=== PATIENT | female | born 1980 | race Caucasian/White ===

== ENCOUNTER 2017-07-14 16:45 | Observation (INO) | payer OTHER ==
[2017-07-14 18:11] LABS: BASO % 0.3 % (0.0-1.0); EOS # 0.1 10^3/uL (0.0-0.50); EOS % 0.9 % (0.0-3.0); HEMOGLOBIN 14.3 g/dl (12.0-16.0); IMMATURE GRANULOCYTE % 0.2 % (0-0); LYMPH # 1.5 10^3/uL (1.5-4.5); LYMPH % 23.5 % (24.0-44.0); MEAN CORPUSCULAR HEMOGLOBIN 27.6 pg (27.0-33.0); MEAN CORPUSCULAR HGB CONC 33.3 g/dl (32.0-36.5); MONO # 0.7 10^3/uL (0.0-0.8); MONO % 10.3 % (0.0-5.0); NEUTROPHILS # 4.2 10^3/uL (1.8-7.7); NEUTROPHILS % 64.8 % (36.0-66.0); PLATELET COUNT, AUTOMATED 273 10^3/uL (150-450); RED BLOOD COUNT 5.18 10^6/uL (4.00-5.40); RED CELL DISTRIBUTION WIDTH 13.1 % (11.5-14.5); WHITE BLOOD COUNT 6.4 10^3/uL (4.0-10.0)
[2017-07-14 18:14] LABS: KETONE, URINE AUTO RFX NEGATIVE (NEGATIVE); LEUKOCYTE ESTERASE UR AUTO RFX NEGATIVE (NEGATIVE); MUCUS, URINE RFX SMALL (NEGATIVE); NITRITE, URINE AUTO RFX NEGATIVE (NEGATIVE); RBC, URINE AUTO RFX 5 /HPF (0-3); SPECIFIC GRAVITY UR AUTO RFX 1.012 (1.002-1.035); SQUAM EPITHELIAL CELL UR AURFX 0 /HPF (0-6); WBC, URINE AUTO RFX 1 /HPF (0-3)
[2017-07-14] MEDS: MORPHINE 4 MG/ML 1ML VIAL (J2270) IV (20:18)
[2017-07-14] MEDS: ONDANSETRON 4MG/2ML VIAL (J2405) IV ×2 (20:18)
[2017-07-14] MEDS: MORPHINE 4 MG/ML 1ML SYRINGE IV (20:18)
[2017-07-14 20:20] LABS: CONTROL LINE HCG INT CTR LINE PRESENT; HCG, SERUM QUALITATIVE NEGATIVE (NEGATIVE)
[2017-07-14 20:28] LABS: ALBUMIN 3.7 GM/DL (3.2-5.2); ALBUMIN/GLOBULIN RATIO 1.32 (1.00-1.93); ALKALINE PHOSPHATASE 80 U/L (45-117); ALT/SGPT 23 U/L (12-78); ANION GAP 7 MEQ/L (8-16); AST/SGOT 18 U/L (7-37); BILIRUBIN,DIRECT 0.2 MG/DL (0.0-0.2); BILIRUBIN,TOTAL 0.6 MG/DL (0.2-1.0); BLOOD UREA NITROGEN 8 MG/DL (7-18); CALCIUM LEVEL 8.4 MG/DL (8.5-10.1); CARBON DIOXIDE LEVEL 26 MEQ/L (21-32); CHLORIDE LEVEL 111 MEQ/L (98-107); GLOMERULAR FILTRATION RATE > 60.0 (>60); GLUCOSE, FASTING 86 MG/DL (70-105); LIPASE 187 U/L (73-393); POTASSIUM SERUM 3.9 MEQ/L (3.5-5.1); SODIUM LEVEL 144 MEQ/L (136-145); TOTAL PROTEIN 6.5 GM/DL (6.4-8.2)
[2017-07-14] MEDS: busPIRone 10 MG TAB PO ×2 (21:00)
[2017-07-14] MEDS: LACTOBACILLUS ACIDOPHILUS CAP (BACID) PO ×2 (21:00)
[2017-07-14] MEDS: GASTROGRAFIN SOLUTION 30ML PO ×2 (22:04)
[2017-07-14] MEDS ORDERED: ISOVUE-370 76% 100ML VIAL (Q9967) As Ordered ×2 (22:20)
[2017-07-14] MEDS: GASTROGRAFIN SOLUTION 30ML (Q9963) PO ×2 (22:45)
[2017-07-14 23:17] LABS: CHLAMYDIA DNA AMPLIFICATION NEGATIVE (NEGATIVE); GC DNA AMPLIFICATION NEGATIVE (NEGATIVE)
[2017-07-15] MEDS ORDERED: ONDANSETRON 4MG/2ML VIAL (J2405) IV ×2 (01:30)
[2017-07-15] MEDS: ACETAMINOPHEN TAB 650MG DOSE (2X325MG) PO ×6 (03:55→15:40)
[2017-07-15] MEDS: MULTIVITAMINS CHILDREN'S CHEWABLE TABLET PO ×2 (09:12)
[2017-07-15] MEDS: PANTOPRAZOLE 40MG TAB (PROTONIX) PO ×2 (09:13)
[2017-07-15] MEDS: OMEGA-3 1050MG CAPSULE PO ×2 (09:13)
[2017-07-15] MEDS: busPIRone 10 MG TAB PO ×4 (09:13→20:54)
[2017-07-15] MEDS: ENOXAPARIN 40 MG/0.4 ML SYRINGE (J1650) SC ×2 (15:41)
[2017-07-15] MEDS: MORPHINE 2 MG/ML 1ML SYRINGE (J2270) IV (15:41)
[2017-07-15] MEDS: MORPHINE 2 MG/ML 1ML SYRINGE IV (15:41)
[2017-07-15 16:38] LABS: C REACTIVE PROTEIN QUANTITATIV 1.25 MG/DL (0.00-0.30)
[2017-07-15 16:42] LABS: ERYTHROCYTE SEDIMENTATION RATE 5 mm/hr (0-20)
[2017-07-15] MEDS: LACTOBACILLUS ACIDOPHILUS CAP (BACID) PO ×2 (20:54)
[2017-07-16 07:02] LABS: HEMATOCRIT 40.6 % (36.0-47.0); HEMOGLOBIN 13.4 g/dl (12.0-16.0); MEAN CORPUSCULAR HEMOGLOBIN 27.9 pg (27.0-33.0); MEAN CORPUSCULAR VOLUME 84.4 fl (80.0-96.0); PLATELET COUNT, AUTOMATED 284 10^3/uL (150-450); RED BLOOD COUNT 4.81 10^6/uL (4.00-5.40); RED CELL DISTRIBUTION WIDTH 13.1 % (11.5-14.5); WHITE BLOOD COUNT 5.3 10^3/uL (4.0-10.0)
[2017-07-16 07:31] LABS: ANION GAP 6 MEQ/L (8-16); BLOOD UREA NITROGEN 7 MG/DL (7-18); C REACTIVE PROTEIN QUANTITATIV 0.83 MG/DL (0.00-0.30); CALCIUM LEVEL 8.4 MG/DL (8.5-10.1); CARBON DIOXIDE LEVEL 29 MEQ/L (21-32); CHLORIDE LEVEL 107 MEQ/L (98-107); GLOMERULAR FILTRATION RATE > 60.0 (>60); GLUCOSE, FASTING 94 MG/DL (70-105); MAGNESIUM LEVEL 2.2 MG/DL (1.8-2.4); SODIUM LEVEL 142 MEQ/L (136-145)
[2017-07-16] MEDS: busPIRone 10 MG TAB PO ×2 (09:13)
[2017-07-16] MEDS: OMEGA-3 1050MG CAPSULE PO ×2 (09:14)
[2017-07-16] MEDS: PANTOPRAZOLE 40MG TAB (PROTONIX) PO ×2 (09:14)
[2017-07-16] MEDS: MULTIVITAMINS CHILDREN'S CHEWABLE TABLET PO ×2 (09:14)
[2017-07-16] MEDS: ENOXAPARIN 40 MG/0.4 ML SYRINGE (J1650) SC ×2 (09:15)
== END 2017-07-16 12:10 | disposition home or self-care (01) ==
LOC: M ED INP 16:46 → M PED 07-15 02:55 → M ED 16:45
DX: A04.4 Other intestinal Escherichia coli infections (principal); E66.9 Obesity, unspecified; N80.9 Endometriosis, unspecified; E80.4 Gilbert syndrome; E85.0 Non-neuropathic heredofamilial amyloidosis; Z90.710 Acquired absence of both cervix and uterus; Z91.040 Latex allergy status; Z79.899 Other long term (current) drug therapy
CPT/HCPCS: 96376